=== PATIENT | female | born 1980 | race Caucasian/White ===

== ENCOUNTER 2020-04-30 20:13 | Emergency (ER) | payer OTHER ==
[~2020-04-30] VITALS: Ht 175.3 cm; Wt 61.2 kg
[2020-04-30] MEDS ORDERED: PREVACID30 MG PO (20:31)
[2020-04-30] MEDS ORDERED: CLARITIN10 MG PO (20:32)
[2020-04-30] MEDS ORDERED: PROBIOTIC1 EAC7 PO (20:32)
[2020-04-30 20:42] LABS: ABSOLUTE EOSINOPHILS 0.1 thou/uL (0.0-0.7); ABSOLUTE LYMPHOCYTES 2.2 thou/uL (0.8-5.3); ABSOLUTE MONOCYTES 0.7 thou/uL (0.0-1.2); ABSOLUTE NEUTROPHILS 3.5 thou/uL (1.6-8.1); BASOPHILS 0.4 %; EOSINOPHILS 1.8 %; HEMATOCRIT 39.9 % (37.0-47.0); HEMOGLOBIN 13.4 gm/dL (12.0-15.0); LYMPHOCYTES 33.6 %; MCH 28.7 pg (26.0-34.0); MCHC 33.5 g/dL (28.0-37.0); MCV 85.8 fL (80.0-100.0); MONOCYTES 10.4 %; NUCLEATED RBCS 0 /100WBC; PLATELET COUNT* 310 thou/uL (150-400); POLYS 53.8 %; RBC 4.66 mil/uL (4.20-5.00); RDW-CV 13.2 % (10.5-14.5); WBC 6.5 thou/uL (4.0-11.0)
[2020-04-30 20:44] LABS: URINE BILIRUBIN NEGATIVE (Negative); URINE BLOOD NEGATIVE (Negative); URINE CLARITY CLEAR; URINE COLOR YELLOW; URINE GLUCOSE-RANDOM NEGATIVE (Negative); URINE KETONES NEGATIVE (Negative); URINE LEUKOCYTES-REFLEX NEGATIVE (Negative); URINE NITRITE-REFLEX NEGATIVE (Negative); URINE PROTEIN NEGATIVE (Negative); URINE UROBILINOGEN 0.2 E.U./dl (0.2-1.0)
[2020-04-30 20:54] LABS: CALCIUM 9.2 mg/dL (8.5-10.1); POTASSIUM 3.3 mmol/L (3.5-5.1)
[2020-04-30 20:58] LABS: ALBUMIN 4.1 g/dL (3.4-5.0); TOTAL BILIRUBIN 0.2 mg/dL (<0.1-1.0); TOTAL PROTEIN 7.4 g/dL (6.4-8.2)
[2020-04-30 23:29] VITALS: BP 99/65
--- NOTE | 2020-05-01 09:30 | EKG ---
[place] [address] ELECTROCARDIOGRAM REPORT Name: TATYANA GUEVARA Room: [facility]#: [id number] Admission: 04/30/20 Attend Phys: Discharge: 04/30/20 Date of : 80 Date of Service: 04/30/202018 Report #: [id number] THIS REPORT FOR: //name// [facility] ED Test Date: 2020-04-30 Test Time: 20:19:45 Pat Name: TATYANA GUEVARA Department: Room: Gender: F Darkroom Worker: GABI : 1980 Requested By: Cadence Packer Order Number: [id number] MD: Lion Chavez Measurements Intervals [place] Rate: 104 P: 60 AK: 132 QRS: 64 QRSD: 82 T: 44 QT: 336 QTc: 442 Interpretive Statements Sinus tachycardia No previous ECG available for comparison Electronically Signed On 05-01-2020 9:30:22 COMMUNICATIONS TECHNOLOGIST by Lion Chavez [email or web address] <ELECTRONICALLY SIGNED> By: Lion Chavez MD, [facility] 05/01/20929 18 18 Lion Chavez MD, FACC /EPI
== END 2020-04-30 23:30 | disposition home or self-care (01) ==
LOC: M.ERS 20:13
PROVIDERS: Personal Emergency Response Attendant
DX: R06.02 Shortness of breath (principal); Z20.828 Contact with and (suspected) exposure to other viral communicable diseases